=== PATIENT | female | born 1970 | race Caucasian/White ===

== ENCOUNTER → 2023-09-12 08:09 | Outpatient (REF) | payer MEDICARE, OTHER, SELFPAY ==
[2023-09-12 09:00] LABS: % Basophils 0.7 % (0-2); % Eosinophils 6.3 % (0-6); % Immature Granulocytes 0.1 % (0-0.5); % Lymphocytes 47.6 % (20.5-51.1); % Monocytes 5.9 % (1.7-9.3); % Neutrophils 39.4 % (42.2-75.2); Absolute Basophils 0.1 10^3/uL (0-0.2); Absolute Eosinophils 0.5 10^3/uL (0-0.7); Absolute Lymphocytes 3.4 10^3/uL (1.2-3.4); Absolute Monocytes 0.4 10^3/uL (0.1-0.6); Absolute Neutrophils 2.8 10^3/uL (1.4-6.5); Hematocrit 43.4 % (37.0-47.0); Hemoglobin 14.9 g/dL (12.0-16.0); Mean Corp Hgb Conc. 34.3 g/dL (33.0-37.0); Mean Corpuscular Hgb 30.8 pg (27.0-31.0); Mean Corpuscular Volume 89.7 fL (81.0-99.0); Mean Platelet Volume 9.2 fL (7.4-10.4); Nucleated Red Blood Cells % 0 %; Platelet Count 241 10^3/uL (130-400); Red Blood Cell Count 4.84 10^6/uL (4.20-5.40); Red Cell Dist. Width 12.1 % (11.5-14.5); White Blood Cell Count 7.2 10^3/uL (4.8-10.8)
[2023-09-12 09:29] LABS: ALT (SGPT) 38 U/L (0-35); AST (SGOT) 38 U/L (14-36); Albumin 4.7 g/dl (3.5-5.0); Alkaline Phosphatase 72 U/L (38-126); Blood Urea Nitrogen 19 mg/dl (7-17); Calcium 9.5 mg/dl (8.4-10.2); Carbon Dioxide 30 mmol/L (22-30); Chloride 101 mmol/L (98-107); Glucose 93 mg/dl (70-99); HDL Cholesterol 56 mg/dl; LDL Cholesterol, Calculated 154 mg/dl; Potassium 4.6 mmol/L (3.5-5.1); Sodium 137 mmol/L (135-145); Total Bilirubin 0.7 mg/dl (0.2-1.3); Total Cholesterol 265 mg/dl (50-199); Total Protein 7.5 g/dl (6.3-8.2); Triglyceride 275 mg/dl (10-149); Very Low Density Lipoprotein 55 mg/dl (0-30); eGFR > 60.00
[2023-09-12 09:37] LABS: Free T4 0.77 ng/dl (0.78-2.19); Prolactin 21.2 ng/ml (3.0-18.6)
[2023-09-12 09:51] LABS: TSH 3.79 uIU/ml (0.47-4.68)
[2023-09-12 10:36] LABS: Cortisol, Random 11.8 ug/dl
[2023-09-14 02:33] LABS: Amphetamine, Urine Negative ng/mL (Cutoff 300); Barbiturates, Urine Negative ng/mL (Cutoff 200); Benzodiazepines, Urine Negative ng/mL (Cutoff 200); Buprenorphine, Urine Negative ng/mL (Cutoff 5); Carisoprodol, Urine Negative ng/mL (Cutoff 100); Cocaine, Urine Negative ng/mL (Cutoff 150); Creatinine, Urine 106.8 mg/dL (20.0-400.0); Ethyl Glucuronide, Urine Negative ng/mL (Cutoff 500); Fentanyl, Urine Negative ng/mL (Cutoff 1); Marijuana, Urine PresumptivePOS ng/mL (Cutoff 50); Meperidine, Urine Negative ng/mL (Cutoff 200); Methadone, Urine Negative ng/mL (Cutoff 150); Opiates, Urine Negative ng/mL (Cutoff 300); Oxycodone/Oxymorphone, Urine Negative ng/mL (Cutoff 100); PCP (Phencyclidine), Urine Negative ng/mL (Cutoff 25); Propoxyphene, Urine Negative ng/mL (Cutoff 300); Tapentadol, Urine Negative ng/mL (Cutoff 200); Tramadol, Urine PresumptivePOS ng/mL (Cutoff 100); Zolpidem, Urine Negative ng/mL (Cutoff 20)
[2023-09-14 16:17] LABS: IGF-1 Z Score Calculation 1.2; Insulin-like Growth Factor I 185 ng/mL (49-234)
[2023-09-16 07:09] LABS: Tramadol, Urine >10000 ng/mL
[2023-09-17 19:59] LABS: 11-Nor-9-Carboxy THC, Urine 93 ng/mL
== END ==
LOC: REG 08:09
PROVIDERS: ATTENDING PHYSICIAN Internal Medicine Endocrinology, Diabetes & Metabolism; FAMILY PHYSICIAN Family Medicine; REFERRING PHYSICIAN Internal Medicine Rheumatology
DX: I10 Essential (primary) hypertension (principal); E78.5 Hyperlipidemia, unspecified; R53.83 Other fatigue; E03.9 Hypothyroidism, unspecified; D35.2 Benign neoplasm of pituitary gland; D64.9 Anemia, unspecified; G56.01 Carpal tunnel syndrome, right upper limb; M15.9 Polyosteoarthritis, unspecified; M54.2 Cervicalgia
CPT/HCPCS: 36415; 80053; 80061; 80307; 80349; 80373; 82533; 84146; 84305; 84439; 84443; 85025

== ENCOUNTER → 2023-10-23 11:08 | Outpatient (REF) | payer MEDICARE, OTHER, SELFPAY | LOC: MRI 3T 11:08 | PROVIDERS: ATTENDING PHYSICIAN Family Medicine | DX: D35.2 Benign neoplasm of pituitary gland (principal) | CPT/HCPCS: 70553; A9575 ==

== ENCOUNTER 2024-05-26 12:24 | Emergency (ER) | payer MEDICARE, OTHER, SELFPAY ==
--- NOTE | 2024-05-26 12:28 | ED.GENMED ---
ED Provider Triage
<Miriam Beltrán PA-C - Last Filed: 05/26/24 12:33>
-
Patient seen by provider in Triage?: Seen in Triage
Attestation: A medical screening examination has been initiated by a qualified medical provider. Based on the assessment performed at this time, it has been determined that an emergent medical condition may exist and the patient has been informed
that further medical evaluation and possible additional diagnostic testing may be needed.
HPI: 53yoF here after a syncopal episode. She was doing dishes at 11:30am when her 'heart started going crazy.' [place] dizzy and everything got dark and she passed out. Lost consciousness for 30 seconds. AppleWatch said she was in afib with HR in the
120s. Hx of irregular heart beat but has never had afib before.
GENERAL: Alert , in no apparent distress
EYE: No visual abnormalities.
NECK: Trachea midline
ENT: No visible abnormalities.
LUNGS: No acute respiratory distress
NEUROLOGICAL: Alert and oriented
SKIN: Skin intact. No visible changes.
MUSCULOSKELETAL: Moving extremities normally
PSYCH: Normal and appropriate interaction.
This is a medical evaluation conducted in person to initiate diagnostic evaluation and provide initial therapeutics. Please see further documentation by the treating clinician.
Cardiac labs, magnesium, TSH, and EKG ordered.
History of Present Illness
<Miriam Beltrán PA-C - Last Filed: 05/26/24 12:33>
General
Chief Complaint: Fainting/Passed Out
Time Seen by Provider: 05/26/24 15:32
<Huseyin Gonzalez PA-C - Last Filed: 05/26/24 20:10>
General
Source: patient
History of Present Illness
History of Present Illness:
53-year-old female with past medical history of hypothyroidism, iron deficiency anemia, intermittent palpitations presenting to the emergency department for evaluation of palpitations that began around 11:30 AM, felt syncopal and lost consciousness
for which he estimate the about 30 seconds. Patient states that she has had palpitations in the past but states today's seemed a little bit more severe. She notes that she has been seen by cardiology before and has worn Holter monitors however has
not had any abnormal tracings found. Patient does note that in March she did have an episode that her Apple Watch found her to have a brief episode of A-fib and today she also reports that her Apple Watch noted she was in atrial fibrillation as
well. Presently she is asymptomatic. Denies any pain, shortness of breath, diaphoresis, exertional dyspnea, orthopnea, fevers or recent illnesses, recent travel or any other concerns. Of note, patient notes that her heart rate often goes into the
low 40s and her watch will alert her of this but she is always in a normal sinus rhythm during this.
Past History
<Miriam Beltrán PA-C - Last Filed: 05/26/24 12:33>
Past History
ED Past Medical History: HTN and Other (Migraines, pituitary adenoma); Negative Asthma, Hypercholesterolemia or NIDDM
ED Past Surgical History: Other (Pituitary surgery, Fat removed from RLQ for brain tumor)
Social History
Tobacco: Non-smoker
Alcohol: Occasional
Personal:
Living: with family
Family History
Family History: Negative Diabetes, Early CAD or CAD
<Huseyin Gonzalez PA-C - Last Filed: 05/26/24 20:10>
Social History
Drug: None
Review of Systems
<Huseyin Gonzalez PA-C - Last Filed: 05/26/24 20:10>
Review of Systems
All Other Systems: ROS reviewed and negative except as documented in HPI and ROS
Phy Exam
<Huseyin Gonzalez PA-C - Last Filed: 05/26/24 20:10>
Physical Exam
Physical Exam:
GENERAL: Alert , in no apparent distress
EYE: conjunctiva clear
NECK: Supple
ENT: mmm.
CARDIAC: Regular rate and rhythm
LUNGS: Clear breath sounds bilaterally, no acute respiratory distress, no wheezes/rales/rhonchi
NEUROLOGICAL: Alert and oriented
SKIN: Warm and dry, skin intact.
MUSCULOSKELETAL: well perfused.
PSYCH: Normal and appropriate interaction.
Scores
<Huseyin Gonzalez PA-C - Last Filed: 05/26/24 20:10>
[id number] Score for Afib Stroke Risk
Age in Years (65=0, 65-74=1, >/=75=2): <65
Sex (Female=+1): Female
Congestive Heart Failure History (Yes=+1): No
Hypertension History (Yes=+1): No
Stroke/TIA/Thromboembolism History (Yes=+2): No
Vascular Disease History (Yes=+1): No
Diabetes Mellitus (Yes=+1): No
Score: 1
Anticoagulation Recommendations: Consider anticoagulation (as validated in nonvalvular fib)
Heart Failure Risk
Heart Failure Risk Score: Not Applicable
Heart Score for Chest Pain Patients
STEMI patient?: Not applicable
Withdrawal Assessment of Alcohol
Withdrawal Assessment Completed?: Not applicable
Course
<Miriam Beltrán PA-C - Last Filed: 05/26/24 12:33>
Orders/Labs/Results
Orders:
Orders
05/26/24 12:32
Electrocardiogram (*1) Urgent
Reason for Study: Syncope
EKG- Treatment ONCE
05/26/24 12:40
Complete Blood Count/With Diff Urgent
Comprehensive Metabolic Panel Urgent
Magnesium Urgent
TSH Reflex To Free T4 Urgent
Troponin I Urgent
Abnormal Lab Results
05/26/24
12:40
AST 37 H U/L
(14-36)
05/26/24 12:40
05/26/24 12:40
Vital Signs
Initial and Last Documented VS:
Initial Vital Signs
Temp Pulse Resp BP Pulse Ox
97.8 F 62 16 158/102 100
05/26/24 12:29 05/26/24 12:29 05/26/24 12:29 05/26/24 12:29 05/26/24 12:29
Last Documented Vital Signs
Temp Pulse Resp BP Pulse Ox
97.8 F 55 16 133/78 100
05/26/24 12:29 05/26/24 15:18 05/26/24 15:18 05/26/24 15:18 05/26/24 15:18
<Huesyin Gonzalez PA-C - Last Filed: 05/26/24 20:10>
Orders/Labs/Results
Orders:
Orders
05/26/24 12:32
Electrocardiogram (*1) Urgent
Reason for Study: Syncope
EKG- Treatment ONCE
05/26/24 12:40
Complete Blood Count/With Diff Urgent
Comprehensive Metabolic Panel Urgent
Magnesium Urgent
TSH Reflex To Free T4 Urgent
Troponin I Urgent
Abnormal Lab Results
05/26/24
12:40
AST 37 H U/L
(14-36)
05/26/24 12:40
05/26/24 12:40
Vital Signs
Initial and Last Documented VS:
Initial Vital Signs
Temp Pulse Resp BP Pulse Ox
97.8 F 62 16 158/102 100
05/26/24 12:29 05/26/24 12:29 05/26/24 12:29 05/26/24 12:29 05/26/24 12:29
Last Documented Vital Signs
Temp Pulse Resp BP Pulse Ox
97.8 F 55 16 133/78 100
05/26/24 12:29 05/26/24 15:18 05/26/24 15:18 05/26/24 15:18 05/26/24 15:18
<Huseyin Gonzalez PA-C - Last Filed: 05/26/24 20:10>
MDM/Problems Addressed
Differential Diagnosis Includes:
Paroxysmal atrial fibrillation, electrolyte disturbance, tachybradycardia syndrome, no concern for ACS
MDM/Problems Addressed:
53-year-old female presenting to the emergency department for evaluation of palpitations and then a syncopal episode. Patient's Apple Watch found her to be in atrial fibrillation and I reviewed this EKG tracing and it does appear to be atrial
fibrillation. Labs were initiated while in triage and are largely unremarkable. Patient currently in a normal sinus rhythm and without any symptoms. Will discuss case with cardiology as patient is a [id number] score of 1. I do have some
concern for possible tachybradycardia syndrome given her reported bradycardia at times and then she clearly had a heart rate that was documented to be in the 130s to 140 bpm.
<Huseyin Gonzalez PA-C - Last Filed: 05/26/24 20:10>
*Pulse Oximetry
Patient hypoxic: no
*EKG
Heart Rate: 49
Rate: bradycardiac
Rhythm: sinus
[place]: left axis deviation
Ischemia: other (Nonspecific T wave inversions)
*Clerical Transcriber Interpretation
Rate: bradycardiac
Rhythm: sinus
*Critical Care Note
Total Time (30-74mins, 75-104mins- exclusive of procedures): Not Applicable
<Huseyin Gonzalez PA-C - Last Filed: 05/26/24 20:10>
Patient Management
Social determinants of health affecting care: Strong social support
Discussion with other providers: Pest Control Service Representative
Escalation/DeEscalation of care consider admission/obs:
Case discussed with cardiology who would like patient to be initiated on anticoagulation. Will start on Eliquis. I had extensive conversation with patient and about Eliquis and medications to avoid as well as caution with higher risk
activity due to potential side effects of bleeding. Cardiology was also able to make the patient a follow-up appointment scheduled for June 03 at 2 PM. Patient is aware of return precautions to the emergency department and is otherwise stable
for discharge home.
ED Attending Note
<Miriam Beltrán PA-C - Last Filed: 05/26/24 12:33>
-
Portions of this chart may have been created with voice recognition software.� Occasional wrong word or��sound alike� substitutions may have occurred due to the inherent limitations of voice recognition software.
Discharge Plan
Departure
Patient Disposition: Home (Routine Discharge)
Date of Disposition: 05/26/24
Time of Disposition: 16:03
Patient with high blood pressure during this ER visit?: Yes
Discharge Problem:
Paroxysmal atrial fibrillation
Instructions: Atrial Fibrillation (DC), Chest Pain DCA Follow Up
Prescriptions:
New
Eliquis 5 mg tablet
5 mg PO BID 30 Days Qty: 60 0RF
No Action
eletriptan [Relpax] 40 MG tablet
40 mg PO BID
Referrals:
Ailin Louise PA-C [Specified Professional Personl] - 06/03/24 2:00 pm (You have follow up with cardiology, Ailin Louise PA-C, on June 03 at 2 [address] in [address] [facility] [address] [facility] which is located behind the hospital. If you are unable to make
this appointment please call [phone] to reschedule. )
Interventions
Interventions:
*Risk Screen - Suicide Last Done: 05/26/24 12:29
*General Assessment Last Done: 05/26/24 12:29
*Neglect/Abuse Screening Last Done: 05/26/24 12:29
ED- Fall Risk Assessment Last Done: 05/26/24 16:07
*ED COVID-19 Vaccine History Last Done: 05/26/24 16:07
*Nursing Disposition Last Done: 05/26/24 16:11
ED- Cardiac Assessment Last Done: 05/26/24 16:11
ED- Neurological Assessment Last Done: 05/26/24 16:11
Discharge Date and Time
Discharge Date/Time: 05/26/24 16:35
Print Language: TANZANIAN
[2024-05-26 12:29] VITALS: BP 158/102
[2024-05-26 12:52] LABS: % Basophils 1.1 % (0-2); % Eosinophils 3.8 % (0-6); % Immature Granulocytes 0.2 % (0-0.5); % Lymphocytes 38.9 % (20.5-51.1); % Monocytes 7.6 % (1.7-9.3); % Neutrophils 48.4 % (42.2-75.2); Absolute Basophils 0.1 10^3/uL (0-0.2); Absolute Eosinophils 0.2 10^3/uL (0-0.7); Absolute Lymphocytes 2.2 10^3/uL (1.2-3.4); Absolute Monocytes 0.4 10^3/uL (0.1-0.6); Absolute Neutrophils 2.7 10^3/uL (1.4-6.5); Hematocrit 40.4 % (37.0-47.0); Hemoglobin 14.2 g/dL (12.0-16.0); Mean Corp Hgb Conc. 35.1 g/dL (33.0-37.0); Mean Corpuscular Hgb 30.8 pg (27.0-31.0); Mean Corpuscular Volume 87.6 fL (81.0-99.0); Mean Platelet Volume 9.3 fL (7.4-10.4); Nucleated Red Blood Cells % 0 %; Platelet Count 206 10^3/uL (130-400); Red Blood Cell Count 4.61 10^6/uL (4.20-5.40); Red Cell Dist. Width 12.1 % (11.5-14.5); White Blood Cell Count 5.5 10^3/uL (4.8-10.8)
[2024-05-26 13:06] LABS: ALT (SGPT) 31 U/L (0-35); AST (SGOT) 37 U/L (14-36); Albumin 4.4 g/dl (3.5-5.0); Alkaline Phosphatase 79 U/L (38-126); Blood Urea Nitrogen 16 mg/dl (7-17); Calcium 9.6 mg/dl (8.4-10.2); Carbon Dioxide 29 mmol/L (22-30); Chloride 102 mmol/L (98-107); Glucose 93 mg/dl (70-99); Potassium 4.3 mmol/L (3.5-5.1); Sodium 141 mmol/L (135-145); Total Bilirubin 0.4 mg/dl (0.2-1.3); Total Protein 6.8 g/dl (6.3-8.2); eGFR > 60.00
[2024-05-26 13:15] LABS: Troponin I < 0.012 ng/ml
[2024-05-26 13:36] LABS: TSH Reflex To Free T4 1.04 uIU/ml (0.47-4.68)
[2024-05-26 15:18] VITALS: BP 133/78
== END 2024-05-26 16:35 | disposition home or self-care (01) ==
LOC: EMR 12:24
PROVIDERS: Physician Assistant; EMERGENCY PHYSICIAN Emergency Medicine
DX: R55 Syncope and collapse (principal); I48.91 Unspecified atrial fibrillation; E03.9 Hypothyroidism, unspecified; I10 Essential (primary) hypertension; Z79.01 Long term (current) use of anticoagulants; Z86.018 Personal history of other benign neoplasm
CPT/HCPCS: 99283; 80053; 83735; 84443; 84484; 85025; 93005

== ENCOUNTER → 2024-09-23 09:09 | Outpatient (REF) | payer MEDICARE, OTHER, SELFPAY ==
[2024-09-23 10:41] LABS: % Basophils 0.5 % (0-2); % Lymphocytes 35.1 % (20.5-51.1); % Monocytes 6.7 % (1.7-9.3); % Neutrophils 53.7 % (42.2-75.2); Absolute Eosinophils 0.2 10^3/uL (0-0.7); Absolute Immature Granulocytes 0.1 10^3/uL (0-0.05); Absolute Lymphocytes 2.1 10^3/uL (1.2-3.4); Absolute Monocytes 0.4 10^3/uL (0.1-0.6); Absolute Neutrophils 3.2 10^3/uL (1.4-6.5); Hematocrit 41.7 % (37.0-47.0); Hemoglobin 14.4 g/dL (12.0-16.0); Mean Corp Hgb Conc. 34.5 g/dL (33.0-37.0); Mean Corpuscular Hgb 30.4 pg (27.0-31.0); Mean Platelet Volume 9.6 fL (7.4-10.4); Nucleated Red Blood Cells % 0 %; Platelet Count 200 10^3/uL (130-400); Red Blood Cell Count 4.74 10^6/uL (4.20-5.40); Red Cell Dist. Width 11.9 % (11.5-14.5)
[2024-09-23 11:34] LABS: ALT (SGPT) 39 U/L (0-35); AST (SGOT) 34 U/L (14-36); Albumin 5.1 g/dl (3.5-5.0); Alkaline Phosphatase 66 U/L (38-126); Blood Urea Nitrogen 17 mg/dl (7-17); Calcium 9.6 mg/dl (8.4-10.2); Carbon Dioxide 29 mmol/L (22-30); Chloride 100 mmol/L (98-107); Glucose 85 mg/dl (70-99); HDL Cholesterol 53 mg/dl; LDL Cholesterol, Calculated 131 mg/dl; Potassium 4.7 mmol/L (3.5-5.1); Sodium 138 mmol/L (135-145); Total Bilirubin 1.1 mg/dl (0.2-1.3); Total Cholesterol 232 mg/dl (50-199); Total Protein 7.7 g/dl (6.3-8.2); Triglyceride 240 mg/dl (10-149); Very Low Density Lipoprotein 48 mg/dl (0-30); eGFR > 60.00
[2024-09-23 12:08] LABS: Free T4 1.02 ng/dl (0.78-2.19)
[2024-09-23 12:22] LABS: Cortisol, Random 15.3 ug/dl
[2024-09-23 12:47] LABS: TSH 1.63 uIU/ml (0.47-4.68)
[2024-09-24 12:05] LABS: Rheumatoid Agglutinin Less Than 10 IU (<10 IU)
[2024-09-25 01:45] LABS: ANA, IgG Reflex to HEp-2 None Detected (None Detected)
== END ==
LOC: REG 09:09
PROVIDERS: ATTENDING PHYSICIAN Family Medicine
DX: M25.50 Pain in unspecified joint (principal); E03.9 Hypothyroidism, unspecified; I10 Essential (primary) hypertension; E78.5 Hyperlipidemia, unspecified; R53.83 Other fatigue
CPT/HCPCS: 36415; 80053; 80061; 82533; 84439; 84443; 85025; 86038; 86140; 86430

== ENCOUNTER → 2024-11-02 10:44 | Outpatient (REF) | payer MEDICARE, OTHER, SELFPAY | LOC: WDC 10:44 | PROVIDERS: ATTENDING PHYSICIAN Family Medicine | DX: Z12.31 Encounter for screening mammogram for malignant neoplasm of breast (principal) | CPT/HCPCS: 77063; 77067 ==

== ENCOUNTER → 2024-11-23 11:51 | Outpatient (REF) | payer MEDICARE, OTHER, SELFPAY | LOC: DHSLP 11:51 | PROVIDERS: ATTENDING PHYSICIAN Internal Medicine Critical Care Medicine | DX: G47.33 Obstructive sleep apnea (adult) (pediatric) (principal); R06.83 Snoring; G47.00 Insomnia, unspecified; I48.91 Unspecified atrial fibrillation; R09.02 Hypoxemia; G43.909 Migraine, unspecified, not intractable, without status migrainosus | CPT/HCPCS: 95800 ==

== ENCOUNTER → 2025-01-25 16:00 | Outpatient (REF) | payer MEDICARE, OTHER, SELFPAY | LOC: RCS 16:00 | PROVIDERS: ATTENDING PHYSICIAN Nuclear Medicine Nuclear Cardiology; FAMILY PHYSICIAN Family Medicine | DX: R00.2 Palpitations (principal) | CPT/HCPCS: 93306 ==

== ENCOUNTER → 2025-07-14 08:08 | Outpatient (REF) | payer MEDICARE, OTHER, SELFPAY ==
[2025-07-14 09:21] LABS: Hematocrit 45.4 % (37.0-47.0); Hemoglobin 15.8 g/dL (12.0-16.0); Mean Corp Hgb Conc. 34.8 g/dL (33.0-37.0); Mean Corpuscular Volume 86.5 fL (81.0-99.0); Nucleated Red Blood Cells % 0 %; Platelet Count 239 10^3/uL (130-400); Red Cell Dist. Width 12.0 % (11.5-14.5)
[2025-07-14 10:16] LABS: ALT (SGPT) 35 U/L (0-35); AST (SGOT) 36 U/L (14-36); Albumin 5.3 g/dl (3.5-5.0); Alkaline Phosphatase 68 U/L (38-126); Blood Urea Nitrogen 17 mg/dl (7-17); Calcium 10.0 mg/dl (8.4-10.2); Carbon Dioxide 28 mmol/L (22-30); Chloride 103 mmol/L (98-107); Glucose 90 mg/dl (70-99); HDL Cholesterol 65 mg/dl; LDL Cholesterol, Calculated 150 mg/dl; Potassium 4.7 mmol/L (3.5-5.1); Sodium 139 mmol/L (135-145); Total Protein 8.1 g/dl (6.3-8.2); Very Low Density Lipoprotein 20 mg/dl (0-30); eGFR > 60.00
[2025-07-14 10:17] LABS: ALT (SGPT) 34 U/L (0-35); AST (SGOT) 35 U/L (14-36); Albumin 5.2 g/dl (3.5-5.0); Alkaline Phosphatase 66 U/L (38-126); Blood Urea Nitrogen 18 mg/dl (7-17); Calcium 10.0 mg/dl (8.4-10.2); Carbon Dioxide 28 mmol/L (22-30); Chloride 103 mmol/L (98-107); Glucose 90 mg/dl (70-99); Potassium 4.8 mmol/L (3.5-5.1); Sodium 140 mmol/L (135-145); Total Protein 8.2 g/dl (6.3-8.2); eGFR > 60.00
[2025-07-14 10:34] LABS: TSH 0.68 uIU/ml (0.47-4.68)
[2025-07-14 12:13] LABS: FSH 43.4 mIU/ml
[2025-07-14 12:26] LABS: TSH 0.68 uIU/ml (0.47-4.68)
[2025-07-14 15:55] LABS: Cortisol, Random 18.2 ug/dl
[2025-07-16 16:37] LABS: IGF-1 Z Score Calculation 1.0
== END ==
LOC: REG 08:08
PROVIDERS: ATTENDING PHYSICIAN Internal Medicine Endocrinology, Diabetes & Metabolism; FAMILY PHYSICIAN Family Medicine
DX: D35.2 Benign neoplasm of pituitary gland (principal); I10 Essential (primary) hypertension; E78.5 Hyperlipidemia, unspecified; R53.83 Other fatigue; E03.9 Hypothyroidism, unspecified
CPT/HCPCS: 36415; 80053; 80061; 82533; 83001; 84146; 84305; 84439; 84443; 85025